=== PATIENT | female | born 1990 | race Caucasian/White ===

== ENCOUNTER 2019-09-29 05:14 | Outpatient (CLI) | payer OTHER ==
[~2019-09-29] VITALS: Ht 172.7 cm; Wt 78.2 kg
[2019-09-29 05:46] VITALS: BP 99/64
[2019-09-29] MEDS ORDERED: PREN1TAB60 PO (06:46)
== END 2019-09-29 06:50 | disposition home or self-care (01) ==
LOC: LDOP 05:14
PROVIDERS: ATTEND Obstetrics & Gynecology
DX: O26.893 Other specified pregnancy related conditions, third trimester (principal); R10.9 Unspecified abdominal pain; Z3A.40 40 weeks gestation of pregnancy
CPT/HCPCS: 59025; 84112; 99201; G0463

== ENCOUNTER 2019-09-29 19:05 | Inpatient (IN) | payer OTHER ==
[~2019-09-29] VITALS: Ht 170.2 cm; Wt 78.2 kg
[~2019-09-29 19:05] MED LIST: PREN1TAB60 PO
[2019-09-29] MEDS: D5%-LACTATED RINGERS 1,000 ML IV SCH (19:21)
[2019-09-29] MEDS ORDERED: LACTATED RINGERS 1,000 ML IV SCH ×2 (19:21→19:49)
[2019-09-29] MEDS ORDERED: FENTANYL/BUPIV./NS/PF 250 ML EPIDCONT SCH ×2 (19:21→19:49)
[2019-09-29] MEDS ORDERED: OXYTOCIN 30U/ 0.9% NaCL 500ML 500 ML IV ONE (19:21)
[2019-09-29] MEDS ORDERED: SODIUM CITRATE/CITRIC ACID 30 ML UDC PO PRN (19:30)
[2019-09-29] MEDS ORDERED: FENTANYL PF 100 MCG/2ML IV PRN (19:30)
[2019-09-29] MEDS ORDERED: METOCLOPRAMIDE 5 MG/ML, 2ML IVPush PRN (19:30)
[2019-09-29] MEDS ORDERED: TERBUTALINE 1 MG/ML, 1ML SQ PRN (19:30)
[2019-09-29] MEDS ORDERED: ONDANSETRON 2MG/ML, 2ML IVPush PRN (19:30)
[2019-09-29] MEDS ORDERED: CALCIUM CARBONATE 500 MG TAB.CHEW PO PRN (19:30)
[2019-09-29] MEDS ORDERED: ALUMINUM/MAG/SIMETHICONE 30 ML UDC PO PRN (19:30)
[2019-09-29] MEDS ORDERED: FENTANYL PF 100 MCG/2ML IVPush PRN (19:30)
[2019-09-29] MEDS ORDERED: TERBUTALINE 1 MG/ML, 1ML IVPush PRN (19:30)
[2019-09-29 19:40] VITALS: BP 110/65
[2019-09-29 19:44] LABS: BASOPHILS # (AUTO) 0.07 x10^3/uL (0-0.1); BASOPHILS % (AUTO) 1 % (0-1); EOSINOPHILS # (AUTO) 0.08 x10^3/uL (0-0.4); EOSINOPHILS % (AUTO) 1 % (1-7); LYMPHOCYTES # (AUTO) 1.79 x10^3/uL (1-3.4); LYMPHOCYTES % (AUTO) 12 % (22-44); MD NO; MEAN CORPUSCULAR HGB CONC 33.6 g/dL (32.4-35.8); MEAN CORPUSCULAR VOLUME 95.1 fL (80-100); MEAN PLATELET VOLUME 10.3 fL (7.4-10.4); MONOCYTES # (AUTO) 1.03 x10^3/uL (0.2-0.8); MONOCYTES % (AUTO) 7 % (2-9); NEUTROPHILS # (AUTO) 12.02 x10^3/uL (1.8-6.8); NEUTROPHILS % (AUTO) 80 % (42-75); PLATELET COUNT 200 x10^3/uL (130-400); RED BLOOD COUNT 4.08 x10^6/uL (3.82-5.3); RED CELL DISTRIBUTION WIDTH 12.9 % (9.6-15.2)
[2019-09-29] MEDS ORDERED: OXYTOCIN 30U/ 0.9% NaCL 500ML 500 ML ONE (19:56)
[2019-09-29] MEDS ORDERED: NEWBORN KIT ONE (19:56)
[2019-09-29] MEDS ORDERED: NALOXONE 0.4 MG/ML, 1ML IVPush PRN (20:00)
[2019-09-29] MEDS ORDERED: FENTANYL PF 500 MCG, BUPIVACAINE/PF 0.5%, 30ML 62.5 ML in SODIUM CHLORIDE 0.9% 177.5 ML EPIDCONT SCH (20:00)
[2019-09-29] MEDS ORDERED: LACTATED RINGERS 1,000 ML IVBOLUS PRN (20:00)
[2019-09-29] MEDS ORDERED: PLEASE ENTER HEIGHT AND WEIGHT MC SCH (20:00)
[2019-09-29] MEDS ORDERED: FENTANYL PF 100 MCG/2ML ONE (20:10)
[2019-09-29] MEDS ORDERED: BUPIVACAINE 0.25% ONE (20:34)
[2019-09-29] MEDS ORDERED: EPHEDRINE 50 MG/ML, 1ML ONE (21:25)
[2019-09-29] MEDS: EPHEDRINE 50 MG/ML, 1ML IVPush PRN ×2 (21:27→21:53)
[2019-09-30] MEDS: EPHEDRINE 50 MG/ML, 1ML IVPush PRN (01:38)
[2019-09-30] MEDS: D5%-LACTATED RINGERS 1,000 ML IV SCH ×2 (03:21→08:17)
[2019-09-30] MEDS ORDERED: OXYTOCIN 30U/ 0.9% NaCL 500ML 500 ML IV PRN (06:08)
[2019-09-30] MEDS ORDERED: LACTATED RINGERS 1,000 ML INTUTE SCH (06:30)
[2019-09-30] MEDS ORDERED: LACTATED RINGERS 1,000 ML INTUTE PRN (06:30)
[2019-09-30] MEDS ORDERED: CARBOPROST TROMETHAMINE 250 MCG/ML, 1ML IM PRN (09:30)
[2019-09-30] MEDS ORDERED: MISOPROSTOL 200 MCG TABLET PR PRN (09:30)
[2019-09-30] MEDS ORDERED: METHYLERGONOVINE 0.2 MG/ML IM PRN (09:30)
[2019-09-30] MEDS ORDERED: SIMETHICONE 80 MG CHEW TAB PO PRN (09:30)
[2019-09-30] MEDS ORDERED: OXYcodone/APAP 5/325MG TABLET PO PRN (09:30)
[2019-09-30] MEDS ORDERED: OXYTOCIN 30U/ 0.9% NaCL 500ML 500 ML ONE (10:30)
[2019-09-30] MEDS: OXYTOCIN 30U/ 0.9% NaCL 500ML 500 ML IV SCH ×2 (10:31→19:08)
[2019-09-30] MEDS ORDERED: IBUPROFEN 600 MG TABLET ONE (10:51)
[2019-09-30] MEDS ORDERED: IBUPROFEN 800 MG TABLET ONE (10:53)
[2019-09-30] MEDS: IBUPROFEN 800 MG TABLET PO PRN ×2 (10:53→18:38)
[2019-09-30 11:15] VITALS: BP 108/73
[2019-09-30 16:02] VITALS: BP 102/68
[2019-09-30 20:00] VITALS: BP 102/64
[2019-09-30] MEDS: DOCUSATE 100 MG CAPSULE PO PRN (20:17)
[2019-09-30] MEDS: OXYcodone/APAP 5/325MG TABLET PO PRN (20:18)
[2019-09-30] MEDS ORDERED: MEASLES,MUMPS&RUBELLA VACC/PF 0.5 ML SQ-VACC ONE ×2 (20:25→20:30)
[2019-10-01 01:45] VITALS: BP 115/71
[2019-10-01] MEDS: OXYcodone/APAP 5/325MG TABLET PO PRN (01:51)
[2019-10-01] MEDS: OXYTOCIN 30U/ 0.9% NaCL 500ML 500 ML IV SCH (05:08)
[2019-10-01 06:55] LABS: MEAN CORPUSCULAR HGB CONC 33.2 g/dL (32.4-35.8); MEAN CORPUSCULAR VOLUME 96.4 fL (80-100); MEAN PLATELET VOLUME 10.2 fL (7.4-10.4); PLATELET COUNT 175 x10^3/uL (130-400); RED BLOOD COUNT 3.54 x10^6/uL (3.82-5.3); RED CELL DISTRIBUTION WIDTH 13.1 % (9.6-15.2)
[2019-10-01 07:52] LABS: BASOPHILS # (AUTO) 0.04 x10^3/uL (0-0.1); BASOPHILS % (AUTO) 0 % (0-1); EOSINOPHILS # (AUTO) 0.07 x10^3/uL (0-0.4); EOSINOPHILS % (AUTO) 1 % (1-7); LYMPHOCYTES # (AUTO) 1.92 x10^3/uL (1-3.4); LYMPHOCYTES % (AUTO) 14 % (22-44); MD SCAN; MONOCYTES # (AUTO) 1.05 x10^3/uL (0.2-0.8); MONOCYTES % (AUTO) 8 % (2-9); NEUTROPHILS # (AUTO) 10.88 x10^3/uL (1.8-6.8); NEUTROPHILS % (AUTO) 78 % (42-75)
[2019-10-01] MEDS ORDERED: PRENATAL VIT/IRON/FA 1 EACH TABLET PO SCH (09:00)
[2019-10-01 09:10] VITALS: BP 106/70
[2019-10-01] MEDS: IBUPROFEN 800 MG TABLET PO PRN (09:20)
[2019-10-01] MEDS: DOCUSATE 100 MG CAPSULE PO PRN (09:20)
[2019-10-01] MEDS ORDERED: IBUP-1222 PO (10:27)
== END 2019-10-01 11:09 | disposition home or self-care (01) | DRG 807 ==
LOC: LDOP 19:05 → LDIP 19:23 → 2NW 09-30 11:04
PROVIDERS: ADMIT Obstetrics & Gynecology; ATTEND Obstetrics & Gynecology
PROC: 10E0XZZ Delivery of Products of Conception, External Approach (ICD-10-PCS; principal; 2019-09-30)
PROC: 0KQM0ZZ Repair Perineum Muscle, Open Approach (ICD-10-PCS; 2019-09-30)
PROC: 3E0134Z Introduction of Serum, Toxoid and Vaccine into Subcutaneous Tissue, Percutaneous Approach (ICD-10-PCS; 2019-09-30)
PROC: 3E0R3BZ Introduction of Anesthetic Agent into Spinal Canal, Percutaneous Approach (ICD-10-PCS; 2019-09-30)
PROC: 00HU33Z Insertion of Infusion Device into Spinal Canal, Percutaneous Approach (ICD-10-PCS; 2019-09-30)
DX: O69.81X0 Labor and delivery complicated by cord around neck, without compression, not applicable or unspecified (principal); Z37.0 Single live birth; Z3A.40 40 weeks gestation of pregnancy; O48.0 Post-term pregnancy; O70.1 Second degree perineal laceration during delivery; Z88.1 Allergy status to other antibiotic agents; Z23 Encounter for immunization
CPT/HCPCS: 36415; J7121; S0020; 85025; 86850; 86900; G0378; J3010; J2590; J7050; J7120